=== PATIENT | male | born 1975 | race Caucasian/White ===

== ENCOUNTER 2022-02-26 11:09 | Outpatient (REF) | payer OTHER, SELFPAY ==
[2022-02-26 13:32] LABS: MANUAL DIFF FLAG NO
[2022-02-26 13:43] LABS: Basophils Absolute Auto 0.1 X10*3/uL (0.0-0.2); Basophils Percent Auto 0.6 % (0-2); Eosinophils Absolute Auto 0.1 X10*3/uL (0.0-0.4); Eosinophils Percent Auto 1.1 % (0-4); Hematocrit 42.7 % (42.0-52.0); Hemoglobin 14.3 g/dl (14.0-18.0); Imm Gran Abs Auto 0.07 X10*3/uL (0.00-0.03); Imm Gran Pct Auto 0.9 % (0.0-0.4); Lymphocytes Absolute Auto 1.4 X10*3/uL (1.2-4.9); Lymphocytes Percent Auto 17.3 % (20-40); Mean Corpuscular HGB Conc 33.5 g/dl (31.0-36.0); Mean Corpuscular Hemoglobin 29.1 pg (27.0-33.0); Mean Corpuscular Volume 86.8 fL (80.0-98.0); Mean Platelet Volume 10.9 fL (9.4-12.4); Monocytes Absolute Auto 0.8 X10*3/uL (0.1-1.2); Monocytes Percent Auto 10.3 % (2-11); Neutrophils Absolute Auto 5.7 x10*3/uL (2.0-8.3); Neutrophils Percent Auto 69.8 % (45-73); Platelet Count 282 X10*3/uL (160-400); Red Blood Count 4.92 X10*6/uL (4.60-5.80); Red Cell Distribution Width 12.6 % (11.0-16.0); White Blood Count 8.2 X10*3/uL (4.8-10.8)
[2022-02-26 14:03] LABS: C Reactive Protein 8.75 mg/dL (< or = 0.50); Lactate Dehydrogenase 214 U/L (118-273)
== END 2022-02-26 11:10 | disposition home or self-care (01) ==
LOC: HO.10HDL 11:09
PROVIDERS: Visit Provider Internal Medicine
DX: R05.9 Cough, unspecified (principal)
CPT/HCPCS: 36415; 82550; 83615; 85025; 86140

== ENCOUNTER 2022-03-20 15:33 | Outpatient (REF) | payer OTHER, SELFPAY ==
--- NOTE | ~2022-03-20 | CT_ITS ---
EXAMINATION: CT CHEST WITH CONTRAST CLINICAL INFORMATION: Enlarged left hilar lymph node. COMPARISON: None TECHNIQUE: Multidetector volumetric CT imaging of the chest was obtained after the administration of 65 mL of Omnipaque 350 intravenous contrast without immediate adverse reactions. Axial MIP volume rendering provided. Sagittal and coronal reformatted images were obtained. This CT examination was performed using dose optimization techniques as appropriate, variously including the following: *Automated exposure control *Adjustment of mA and/or kV according to patient size (this includes techniques or standardized protocols for targeted exams where dose is matched to indication/reason for exam; i.e. 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 LUNGS: The lungs are well-expanded with ill-defined parenchymal opacity, left upper lobe, with a pleural-based lesion measuring 1.4 x 0.8 x 1.7 cm on axial image 134/5 and sagittal image 16/7. There are atelectatic changes in the left upper lobe as well. There are perivascular pulmonary nodules in the right upper lobe measuring 4 mm on axial image 170/5 and axial image 141/5; 6 mm nodule right upper lobe axial image 32/4; and a 3 mm nodule right middle lobe axial image 320/5. No additional lung nodules seen. MEDIASTINUM: The thyroid lobes are symmetrical and normal. The central trachea and the bronchi are widely patent. There are numerous abnormal size para-aortic pretracheal, precarinal and subcarinal lymph nodes. A large left suprahilar necrotic lymph node is suspected measuring 2.9 x 1.7 cm on axial image 24/3. Also visualized is a left parahilar hypodense lymph node measuring 2.7 cm on axial image 29/3. It measures 65 Hounsfield units. PLEURA: There is no pleural effusion. No pleural mass or thickening. AXILLA: There are multiple small axillary nodules. The chest wall is unremarkable. UPPER ABDOMEN: Visualized liver, spleen and pancreas appear unremarkable. The adrenal glands are normal. OSSEOUS STRUCTURES: No aggressive lytic or sclerotic process seen. CT/CT chest w IV con IMPRESSION: 1. Multiple pulmonary nodules as described above. 2. There is a left upper lobe pleural-based lesion with associated left upper lobe ill-defined ground-glass opacity. Question atelectasis and/or interstitial pneumonitis. 3. There is abnormal mediastinal and left hilar lymphadenopathy. 4. There are multiple small axillary nodules. 5. Suggest PET/CT exam. Fleischner guidelines were followed.
[2022-03-20] MEDS: iohexoL 350 MG/ML 100 ML INFUS..BTL IV (15:52)
== END 2022-03-20 15:34 | disposition home or self-care (01) ==
LOC: HO.CT 15:33
PROVIDERS: PCP Internal Medicine; Visit Provider Internal Medicine
DX: R59.0 Localized enlarged lymph nodes (principal)
CPT/HCPCS: 71260; Q9967

== ENCOUNTER 2022-04-06 09:56 | Outpatient (REF) | payer OTHER, SELFPAY ==
[2022-04-06 10:34] LABS: MANUAL DIFF FLAG NO
[2022-04-06 10:45] LABS: Basophils Percent Auto 0.6 % (0-2); Eosinophils Absolute Auto 0.1 X10*3/uL (0.0-0.4); Eosinophils Percent Auto 1.5 % (0-4); Hematocrit 47.1 % (42.0-52.0); Hemoglobin 15.8 g/dl (14.0-18.0); Imm Gran Abs Auto 0.02 X10*3/uL (0.00-0.03); Imm Gran Pct Auto 0.3 % (0.0-0.4); Lymphocytes Absolute Auto 1.3 X10*3/uL (1.2-4.9); Mean Corpuscular HGB Conc 33.5 g/dl (31.0-36.0); Mean Corpuscular Hemoglobin 28.2 pg (27.0-33.0); Mean Corpuscular Volume 84.1 fL (80.0-98.0); Mean Platelet Volume 11.2 fL (9.4-12.4); Monocytes Absolute Auto 0.6 X10*3/uL (0.1-1.2); Monocytes Percent Auto 9.2 % (2-11); Neutrophils Absolute Auto 4.4 x10*3/uL (2.0-8.3); Neutrophils Percent Auto 68.4 % (45-73); Platelet Count 237 X10*3/uL (160-400); Red Cell Distribution Width 13.1 % (11.0-16.0); White Blood Count 6.5 X10*3/uL (4.8-10.8)
[2022-04-06 11:13] LABS: Lactate Dehydrogenase 174 U/L (118-273)
[2022-04-06 11:31] LABS: Erythrocyte Sedimentation Rate 6 MM/HR (0-15)
[2022-04-09 10:30] LABS: TS Negative Control Passed; TS Panel A 0; TS Panel B 0; TS Positive Control Passed; TSpotTB Negative (Negative)
== END 2022-04-06 09:57 | disposition home or self-care (01) ==
LOC: HO.10HDL 09:56
PROVIDERS: Visit Provider Internal Medicine Medical Oncology
DX: J18.9 Pneumonia, unspecified organism (principal)
CPT/HCPCS: 36415; 83615; 85025; 85652; 86481

== ENCOUNTER → 2022-04-26 10:35 | Outpatient (BNVA) | payer OTHER, SELFPAY | PROVIDERS: PCP Internal Medicine; Visit Provider Hospitalist | DX: Z13.89 Encounter for screening for other disorder (principal) ==

== ENCOUNTER 2022-05-01 06:32 | Day surgery (SDC) | payer OTHER, SELFPAY ==
--- NOTE | 2022-04-30 12:41 | HO.ANESPROP2 ---
Documented by User: Korin Mark NP 04/30/22 12:43 HPI - Anesthesia Eval Consult details Narrative: 47yo M for Endoscopic Bronchial Ultrasound PMFSH Active Problems Active Problems: All Active Problems (Updated 04/26/22 @ 20:52 by Nikhil Marin MD) Wheezing (Acute) Lymphadenopathy (Acute) Lung mass (Acute) Pneumonia (Acute) Past Medical History Medical History Anxiety HTN (hypertension) Lung mass Lymphadenopathy Pneumonia Wheezing Surgical History Surgical History Hx of tonsillectomy Social History Social History Patient Tobacco Use Status: Former Tobacco user Quit Date: 8 yrs ago Use of substances other than those prescribed or required for medical reasons: No Are you DNR?: No Advance Directives: No Advance Directives Information Provided: Yes Meds Allergies Allergy/AdvReac Type Severity Reaction Status Date / Time No Known Allergies Allergy Verified 05/01/22 07:05 Home Medications Medication Instructions Recorded Confirmed Last Taken Type escitalopram oxalate 20 mg tablet 20 mg PO DAILY 04/26/22 05/01/22 Unknown History (Lexapro) lisinopril 20 mg tablet 20 mg PO DAILY 04/26/22 05/01/22 Unknown History multivitamin 1 tab PO DAILY 04/26/22 05/01/22 Unknown History Exam Exam Date and Time: April 30, 2022 1241 Pertinent Lab Results Pertinent Lab Results: Laboratory Tests 04/06/22 10:00 WBC 6.5 Hgb 15.8 Hct 47.1 Plt Count 237 Assessment and Plan Assessment Anesthesia Assessment: Chart Reviewed Documented by User: Makayla Hopkins MD 05/01/22 07:40 PMFSH Active Problems Active Problems: All Active Problems (Updated 04/26/22 @ 20:52 by Nikhil Marin MD) Wheezing (Acute) Lymphadenopathy (Acute) Lung mass (Acute) Pneumonia (Acute) Denies STEVAN Past Medical History Medical History Anxiety HTN (hypertension) Lung mass Lymphadenopathy Pneumonia Wheezing Family History Family history of problems with anesthesia: No Surgical History Surgical History Hx of tonsillectomy History of Problems with Anesthesia: No Social History Social History Patient Tobacco Use Status: Former Tobacco user Quit Date: 8 yrs ago Use of substances other than those prescribed or required for medical reasons: No Are you DNR?: No Advance Directives: No Advance Directives Information Provided: Yes Meds Allergies Allergy/AdvReac Type Severity Reaction Status Date / Time No Known Allergies Allergy Verified 05/01/22 07:05 Home Medications Medication Instructions Recorded Confirmed Last Taken Type escitalopram oxalate 20 mg tablet 20 mg PO DAILY 04/26/22 05/01/22 Unknown History (Lexapro) lisinopril 20 mg tablet 20 mg PO DAILY 04/26/22 05/01/22 Unknown History multivitamin 1 tab PO DAILY 04/26/22 05/01/22 Unknown History Exam Height,Weight and Vital Signs: Height 5 ft 8.9 in Weight 85.729 kg Vital Signs Temp Pulse Resp BP Pulse Ox O2 Del Method 05/01/22 07:06 98.4 F 64 15 127/81 97 Room Air Airway Mallampati Class: III TM Dist: >3cm Neck ROM: Full Loose/Missing/Broken Teeth: No (Denies broken, loose, missing teeth) Heart: RRR Lungs: CTAB Assessment and Plan Assessment Anesthesia Assessment: Anesthesia Plan Discussed Final Anesthetic Review Family History of Problems with Anesthesia: No History of Problems with Anesthesia: No NPO: Yes ASA Class: II Final Preanesthetic Review: No Changes in Pt Med Stat, Meds/Allgs Chart Reviewed, Consent Obtained/Reviewed and Anes Risks/Benef Reviewed Patient Risk: Intermediate Procedure Risk: Low Assessment/Block/Sedation in SS: Assess/Block/Sedation-SS Anesthetic Plan Anesthetic Plan: GA Disposition: Standard PACU
[2022-05-01] VITALS (8 sets, daily range): BP systolic 80–127; BP diastolic 51–81; PULSE 55–75; RESP 15–20; TEMP 36.4–36.9; O2SAT 95–99; BMI 28.0
--- NOTE | ~2022-05-01 | XR_ITS ---
EXAMINATION: XR CHEST CLINICAL INFORMATION: Status post left lung biopsy. COMPARISON: Chest CT scan dated 03/20/2022 TECHNIQUE: Frontal view of the chest was obtained. FINDINGS: Increased consolidation is seen in the left upper lobe medially in the suprahilar region. The lungs otherwise appear clear. The heart and mediastinal structures are unremarkable. XR/XR chest 1V IMPRESSION: Increased consolidation in the left upper lobe medially in the suprahilar region represents interval increase in the previous study. This could represent enlarging mass/infiltrate and/or atelectasis. If clinically indicated, a repeat chest CT scan with intravenous contrast is recommended to assess for change from the previous study.
[2022-05-01] MEDS: Lactated Ringers 1,000 ML 100 ML IVCONT (07:07)
--- NOTE | 2022-05-01 07:53 | MHC.SHP ---
Pre-Procedural Eval Section A Date of Service: 05/01/22 The patient is an INPATIENT: No Changes since office visit: No Cold of Flu in the past 2 weeks, No New Medical Problems, No Changes in Medication and No Patient answered all questions The History & Physical has been completed within 30 days and I have reviewed it.: Yes Section B Chief Complaint: Enlarged lymph nodes, unspecified,Other nonspecifi Allergies: Allergies Allergy/AdvReac Type Severity Reaction Status Date / Time No Known Allergies Allergy Verified 05/01/22 07:05 Plan I have reviewed the history and physical and performed a pertinent physical examination on my patient. No changes have occurred unless specified. Time Spent With Patient Time: Total time managing care of this patient today ____ minutes.
--- NOTE | 2022-05-01 09:54 | P.BOP_ITS ---
Brief Operative Note Date of Service: 05/01/22 Pre-op diagnosis: lymphadenopathy, pneumonia Post-op diagnosis: other (Lymphadenopathy, endobronchial lesion, pericardial effusion) Procedure: EBUS with TBNA and bronchoscopy wmith washings, brushings, and biopsies Implants: Surgeon: Nikhil Marin MD Anesthesia: GETA Was an Test Director used for this Procedure?: No Estimated blood loss (mL): 1 Pathology: other (LAMONTE biopsies, station 4R, 7, 11L TBNA, flow cytometry) Condition: stable Disposition: same day
--- NOTE | 2022-05-02 12:53 | OP_ITS ---
SURGEON: Nikhil Marin MD PREOPERATIVE DIAGNOSIS: Lymphadenopathy, pneumonia, and mass like density. POSTOPERATIVE DIAGNOSIS: Lymphadenopathy, pneumonia, and mass like density as well as endobronchial irregularities to the left upper lobe and pericardial effusion. PROCEDURE PERFORMED: Endobronchial ultrasound, bronchoscopy with transbronchial needle aspiration of station 4R, 7, and 11L along with bronchoscopy with washings, brushings, and endobronchial biopsies of the left upper lobe area. ESTIMATED BLOOD LOSS: 1 mL. COMPLICATIONS: None. ANESTHESIA: General endotracheal anesthesia provided. ASSISTANTS: SPECIMENS: Transbronchial needle aspirations from station 4R, 7, and 11L and also left upper lobe biopsies about the anterior in the apical segment. DESCRIPTION OF PROCEDURE: After the patient was adequately sedated and intubated, the flexible digital bronchoscope with endobronchial ultrasound (EBUS) was inserted over the ET tube to the level of the trachea. Using the ultrasound guidance, appreciate significant degree of lymphadenopathy in the mediastinum and also the hilum. The 4R lymph node measured approximately 1.5 cm. The patient's 7 lymph node was measuring along 2 cm to 3 cm in size, and the 11L lymph nodes measured approximately 1 cm to 1.5 cm in size. Using the ultrasound guidance, a transbronchial needle aspirations were attempted at station 4R initially. Three passes were done. Initially, scant lymphocytes. The lymph node was very hard and likely very infiltrative, sometimes making it difficult to get a good aspirate. Again, multiple attempts were done and solution was also sent for flow cytometry based on the character of those lymph nodes. The bronchoscope was navigated to the station 7 where 4 passes were done. Again, difficult to acquire specimen since it was very hard lymph node, suggesting some pathology within it. Specimens were collected. Lymphocytes were noted. Some microphages were also noted, although no malignant cells appreciated on the rapid on-site cytology. Apparently, at station 11L, three passes were completed. Again, some scant specimens were provided. Most of the specimen sent cell block and the last pass we sent for culture. After completing the EBUS component, the EBUS was removed and replaced with the regular bronchoscope. The bronchoscope was navigated to the entire tracheobronchial tree, which was examined up to the subsegmental level. The airways on the right appeared to be reassuring and normal. The patient did have a splayed cesar. Started having significant erythema and narrowing of the airways in that left upper lobe area including the apical, anteromedial segments. Significant erythema and narrowing. One area appeared to be of cesar in between those 2 segments, like a mass like density, although since it was slightly irregular, the whole area was hard to know if there was one distinct lesion or if it was just all inflamed from an ongoing smoldering process. Still, cytologic brushes introduced into that area, sent to the appropriate location. Then endobronchial biopsies were collected and some transbronchial biopsies were collected from the left upper lobe area. The patient was oozing, minimal bleeding. Epinephrine was used at the end of the procedure, half an ampule just to provide good hemostasis. No active bleeding at the end of the procedure. The bronchoscope was then removed. The total endoscopic time approximately an hour. The patient tolerated the procedure. He was successfully extubated and was comfortable. WATER HAULER: None. CONDITION: Stable. No apparent complications noted. Also worth mentioning that during the ultrasound evaluation of the mediastinum, especially at station 7, the patient did appear to have a pericardial effusion, and therefore, he would need an echocardiogram at some point. MD PAM Treadwell/ELIN / [id number]
== END 2022-05-01 10:54 | disposition home or self-care (01) ==
PROVIDERS: PCP Internal Medicine; Visit Provider Hospitalist
PROC: (CPT 31628; principal; 2022-05-01 08:00)
DX: R59.1 Generalized enlarged lymph nodes (principal); J18.9 Pneumonia, unspecified organism; J98.09 Other diseases of bronchus, not elsewhere classified; I31.39 Other pericardial effusion (noninflammatory); R06.2 Wheezing; R91.8 Other nonspecific abnormal finding of lung field; I10 Essential (primary) hypertension; F41.1 Generalized anxiety disorder; Z79.899 Other long term (current) drug therapy; Z87.891 Personal history of nicotine dependence
CPT/HCPCS: 31628; 31653; 31623; 36415; 71045; 87070; 87073; 87102; 87116; 87205; 87206; 88112; 88172; 88173; 88177; 88184; 88185; 88305; 88312; J2250; J3010

== ENCOUNTER 2022-05-07 09:15 | Outpatient (REF) | payer OTHER, SELFPAY ==
--- NOTE | 2022-05-07 10:06 | ECG_ITS ---
Test Reason : copd Blood Pressure : / mmHG Vent. Rate : 050 BPM Atrial Rate : 050 BPM P-R Int : 192 ms QRS Dur : 116 ms QT Int : 426 ms P-R-T Axes : 042 049 057 degrees QTc Int : 388 ms Sinus bradycardia Otherwise normal ECG No previous ECGs available Referred By: Nikhil Marin Electronically Signed By:FRANCES OROZCO
[2022-05-07 10:23] LABS: MANUAL DIFF FLAG NO
[2022-05-07 10:55] LABS: Basophils Percent Auto 0.3 % (0-2); Eosinophils Absolute Auto 0.1 X10*3/uL (0.0-0.4); Eosinophils Percent Auto 0.7 % (0-4); Hematocrit 48.6 % (42.0-52.0); Hemoglobin 16.3 g/dl (14.0-18.0); Imm Gran Abs Auto 0.04 X10*3/uL (0.00-0.03); Imm Gran Pct Auto 0.5 % (0.0-0.4); Lymphocytes Percent Auto 13.2 % (20-40); Mean Corpuscular HGB Conc 33.5 g/dl (31.0-36.0); Mean Corpuscular Hemoglobin 28.5 pg (27.0-33.0); Mean Platelet Volume 11.3 fL (9.4-12.4); Monocytes Absolute Auto 0.5 X10*3/uL (0.1-1.2); Monocytes Percent Auto 6.8 % (2-11); Neutrophils Absolute Auto 5.9 x10*3/uL (2.0-8.3); Neutrophils Percent Auto 78.5 % (45-73); Platelet Count 212 X10*3/uL (160-400); Red Blood Count 5.72 X10*6/uL (4.60-5.80); Red Cell Distribution Width 13.3 % (11.0-16.0); White Blood Count 7.6 X10*3/uL (4.8-10.8)
[2022-05-07 11:39] LABS: Erythrocyte Sedimentation Rate 2 MM/HR (0-15)
[2022-05-07 11:46] LABS: Alanine Aminotransferase 21 U/L (0-40); Albumin Level 4.4 g/dL (3.5-5.0); Alkaline Phosphatase 72 U/L (39-117); Anion Gap 13 (12-20); Aspartate Amino Transferase 16 U/L (5-37); Bilirubin Direct 0.2 mg/dL (0.0-0.5); Bilirubin Total 0.5 mg/dL (0.0-1.0); Blood Urea Nitrogen 10 mg/dL (9-16); Calcium 9.5 mg/dL (8.4-10.2); Carbon Dioxide 27 mmol/L (22-29); Chloride 102 mmol/L (96-108); Estimated Glomerular Filt Rate > 60; Glucose Random 73 mg/dL (60-115); Potassium 4.3 mmol/L (3.3-5.1); Sodium 138 mmol/L (135-145); Total Protein 7.1 g/dL (6.5-8.0)
[2022-05-07 11:51] LABS: Troponin-I High Sensitivity < 3.5 ng/L (<3.5-35.0)
[2022-05-09 13:48] LABS: Immunoglobulin E 229 kU/L (<OR=114)
[2022-05-09 14:14] LABS: IgA 216 mg/dL (47-310); IgG 1368 mg/dL (600-1640); IgM 39 mg/dL (50-300)
[2022-05-09 15:08] LABS: Anti Nuclear Antibody Screen NEGATIVE (NEGATIVE)
[2022-05-10 14:24] LABS: Angiotensin Converting Enzyme 9.4 U/L (9-67)
[2022-05-12 13:58] LABS: Asperg fumigatus Precip Abs NEGATIVE (NEGATIVE); Micropoly faeni Abs NEGATIVE (NEGATIVE); Pigeon serum Abs NEGATIVE (NEGATIVE); Saccharo pora viridis Abs NEGATIVE (NEGATIVE); Thermo candidus Abs NEGATIVE (NEGATIVE); Thermoa vulgaris #1 NEGATIVE (NEGATIVE)
== END 2022-05-07 09:16 | disposition home or self-care (01) ==
LOC: HO.LAB 09:15
PROVIDERS: PCP Internal Medicine; Visit Provider Hospitalist
DX: J44.9 Chronic obstructive pulmonary disease, unspecified (principal); R59.1 Generalized enlarged lymph nodes; J18.9 Pneumonia, unspecified organism; R91.8 Other nonspecific abnormal finding of lung field; D86.9 Sarcoidosis, unspecified; I31.39 Other pericardial effusion (noninflammatory)
CPT/HCPCS: 36415; 80048; 80076; 82164; 82784; 82785; 84484; 85025; 85652; 86038; 86039; 86331; 86606; 86609; 93005

== ENCOUNTER 2022-05-15 13:59 | Outpatient (REF) | payer OTHER, SELFPAY ==
--- NOTE | 2022-05-15 17:32 | PFT_ITS ---
FLOWS: 1. FEV1 93% of predicted at 3.57 L. 2. FVC 91% of predicted at 4.52 L. 3. FEV1 to FVC ratio of 0.79. 4. No bronchodilator response. LUNG VOLUMES: 1. Total lung capacity 85% of predicted at 5.79 L. 2. Residual volume 65% of predicted at 1.27 L. 3. Slow vital capacity 93% of predicted at 4.52 L. 4. Expiratory reserve volume 83% of predicted at 1.22 L. 5. Diffusion capacity is normal. IMPRESSION: Mild obstructive or restrictive ventilatory defect. No bronchodilator response. Essentially normal pulmonary function test. MD JEYSON Campbell/MODL / [id number]
== END 2022-05-15 14:00 | disposition home or self-care (01) ==
LOC: HO.RESP 13:59
PROVIDERS: PCP Internal Medicine; Visit Provider Hospitalist
DX: D86.9 Sarcoidosis, unspecified (principal)
CPT/HCPCS: 94060; 94727; 94729

== ENCOUNTER → 2022-06-26 10:02 | Outpatient (REF) | payer OTHER, SELFPAY ==
--- NOTE | 2022-06-26 10:08 | CA_ITS ---
Transthoracic Echocardiogram Patient (Last, First, Middle): Serena Porter, Gender: Male Date of : 1975 Age: 47 Procedure Date: 06/26/2022 Procedure Type: Transthoracic Echocardiogram Location: OP Height: 175.26 cm Weight: 88. kg BSA: 2.04 m2 Heart Rate: 52 bpm BP: 125 / 80 mmHg Materials Supervisor: DANIEL Referring MD: Nikhil Marin MD Symptoms: I27.20 - Pulmonary hypertension, unspecified Study Quality: Good ECG Rhythm: Sinus Conclusions: - The left ventricular systolic function is normal. The visually estimated ejection fraction is between 55-60%. - No obvious valvular pathology seen on this study. - There is no evidence of pulmonary hypertension. - There is mild dilatation of the ascending aorta measuring 3.80 cm. Findings Left Ventricle Normal left ventricular cavity size. There is normal left ventricular wall thickness. The left ventricular systolic function is normal. The visually estimated ejection fraction is between 55-60%. There is no evidence of regional wall motion abnormalities. Diastolic function is normal for age. LV peak GLS -18.5%. Right Ventricle Normal right ventricular cavity size and systolic function. Atria Both atria are normal in size. Aortic Valve There is a normal trileaflet aortic valve. There is no aortic valve stenosis. There is no aortic valve regurgitation. Mitral Valve The mitral valve appears normal. There is trace mitral valve regurgitation. There is no mitral valve stenosis. Pulmonic Valve The pulmonic valve is likely normal. Tricuspid Valve Normal tricuspid valve structure. There is trace tricuspid valve regurgitation. There is no evidence of pulmonary hypertension. Great Vessels There is mild dilatation of the ascending aorta measuring 3.80 cm. Venous The inferior vena cava is normal in size and collapses greater than 50% with inspiration. Pericardium/Pleural Prominent epicardial adipose tissue noted. There is no evidence of pericardial effusion. Prior Study Comparison No prior study available for comparison. Recommendations, Care & Conclusions No obvious valvular pathology seen on this study. Measurements 2D Linear Measurements IVSd: 0.98 0.6-0.9/0.6-1.0 cm LVIDd: 4.81 3.9-5.3/4.2-5.9 cm LVIDd Index: 2.36 2.4-3.2/2.2-3.1 cm/m2 LVIDs: 3.05 2.0-3.6 cm LVPWd: 0.91 0.7-1.1 cm LA Diam: 3.80 2.7-3.8/3.0-4.0 cm LAIDs Index: 1.86 1.5-2.3 cm/m2 LV Mass: 197.76 67-162/88-224 g LV Mass Index: 96.94 43-95/49-115 g/m2 LVOT Diam: 2.10 3.0+(-)1.3 cm 2D Systolic Function EF 4C: 57.20 >55% EF 2C: 52.30 >55% EF BiP: 53.00 >55% Mitral Valve MV Pk E: 0.97 MV PK A: 0.78 MV Decel Time: 188.00 E/A: 1.20 E'Lateral: 11.50 E'Medial: 7.83 E/E' Med: 12.40 E/E' Lat: 8.40 PHT: 55.00 MVA PHT: 4.00 Decel [place]: 5.14 Aortic Valve AoV Pk [place]: 1.47 AoV Mn [place]: 1.00 AoV VTI: 0.35 AoV Pk Grad: 9.00 Aov Mn Grad: 5.00 RICKY Cont.VTI: 2.15 LVOT LVOT Pk [place]: 0.99 LVOT Mn [place]: 0.63 LVOT VTI: 0.22 LVOT Pk Grad: 4.00 LVOT Mn Grad: 2.00 LVOT Diam: 2.10 LVOT Area: 3.46 Diastolic Function MV Pk E: 0.97 MV Pk A: 0.78 E/A: 1.20 E'Medial: 7.83 E/E' Med: 12.40 E' Laterial: 11.50 E/E' Lat: 8.40 Right Ventricle TAPSE (mm): 22.60 TVS' [place]: 13.30 Tricuspid Valve RA Press: 3.00 Great Vessels Aorta Sinus of Valsalva: 3.70 2.0-3.5 cm Ao Asc: 3.80 2.1-3.4 cm Pulmonary Valve PV Pk [place]: 1.05 Peak PV Grad: 4.00 Updated in Other Vendor System with Status of Final Solis Calderon MD electronically signed on 06/26/2022 3:46:07 PM with status of Final
== END ==
LOC: HO.CARD 10:02
PROVIDERS: PCP Internal Medicine; Visit Provider Hospitalist
DX: I27.20 Pulmonary hypertension, unspecified (principal); I31.39 Other pericardial effusion (noninflammatory); D86.9 Sarcoidosis, unspecified
CPT/HCPCS: 93306; 93356

== ENCOUNTER → 2022-07-03 08:51 | Outpatient (BNVA) | payer OTHER, SELFPAY | PROVIDERS: PCP Internal Medicine; Visit Provider Hospitalist | DX: D86.9 Sarcoidosis, unspecified (principal) ==

== ENCOUNTER 2022-09-24 08:27 | Outpatient (REF) | payer OTHER, SELFPAY ==
--- NOTE | ~2022-09-24 | CT_ITS ---
EXAMINATION: CT CHEST WITHOUT CONTRAST CLINICAL INFORMATION: Other nonspecific abnormal finding of lung field COMPARISON: Previous chest CTA January [address] March 2022 and chest x-ray April 2022 TECHNIQUE: Multidetector volumetric CT imaging of the chest was done. Axial MIP volume rendering provided. Sagittal and coronal reformatted images were obtained. This CT examination was performed using dose optimization techniques as appropriate, variously including the following: *Automated exposure control *Adjustment of mA and/or kV according to patient size (this includes techniques or standardized protocols for targeted exams where dose is matched to indication/reason for exam; i.e. extremities or head) *Use of iterative reconstruction technique DLP: 190 mGy-cm FINDINGS: LUNGS: 3 mm right upper lobe nodule axial image 236 series 5. 2 mm right middle lobe nodule axial image 409 series 5. These are both stable from previous exam March 2022. There is mild residual scarring seen in the central left upper lobe. Previously identified central masslike consolidation, increased more peripheral attenuation, micronodules and interstitial markings on March 2022 exam have significantly improved. There is minimal residual peripheral or subpleural scarring in the left upper lobe versus pleural thickening axial image 194 series 5 that appears decreased. MEDIASTINUM: Significant interval decrease in mediastinal and hilar lymphadenopathy. No enlarged lymph nodes seen. Normal heart size. No pericardial effusion. Normal thyroid gland. CORONARY ARTERY CALCIFICATION: None visualized on this study. PLEURA: There is no pleural effusion. Question small area of focal pleural thickening adjacent to the left upper lobe versus peripheral or subpleural nodule axial image 20 series 3. AXILLA: No lymphadenopathy. UPPER ABDOMEN: Unremarkable. OSSEOUS STRUCTURES: Unremarkable. CT/CT chest wo IV con IMPRESSION: Significant improvement in left upper lobe process and mediastinal and hilar lymphadenopathy from March 2022. There is residual scarring seen in the central left upper lobe. Small residual peripheral or subpleural nodular density in the left upper lobe versus focal pleural thickening. Stable small right pulmonary nodules. Fleischner guidelines were followed.
== END 2022-09-24 08:28 | disposition home or self-care (01) ==
LOC: HO.CT 08:27
PROVIDERS: PCP Internal Medicine; Visit Provider Hospitalist
DX: R91.8 Other nonspecific abnormal finding of lung field (principal)
CPT/HCPCS: 71250

== ENCOUNTER 2022-10-09 08:57 | Outpatient (AMB) | payer OTHER, SELFPAY ==
[2022-10-09 09:03] VITALS: BP 110/70; PULSE 58; O2SAT 97; BMI 29.5
--- NOTE | 2022-10-09 09:03 | A.OFFVIS_ITS ---
Intake Vital Signs 10/09/22 09:03 Height 5 ft 9 in Weight 200 lb BMI 29.5 BP 110/70 Blood Pressure Location Lt brachial Position Sitting Pulse 58 Pulse Source Pulse Oximeter Pulse Oximetry (%) 97 Oxygen Delivery Method Room Air Intake Visit Reasons: Pulmonary nodule Land [employer] Information Clerk Required: No Allergies No Known Allergies Allergy (Verified 10/09/22 09:05) HPI HPI Comments History of Present Illness Details The patient is a 47-year-old gentleman previously healthy who apparently was in his usual state health until back in January when he was in [place] started developing left-sided chest discomfort along with shortness of breath and cough. He was taken to a hospital in the [place] area. He did have a CT scan of the chest at that time the diagnosis in with pneumonia. The patient was given antibiotics and subsequently came back to the area. Once he came back to the [place] he needed to be started to the primary care doctor. Therefore, the patient did have a visit with primary care doctor. He initially felt better after being treated for the findings on the CT scan with antibiotics however, once he completed the therapy symptoms started to come back. He went to see his primary care doctor the patient completed the course of antibiotics with again partial improvement of the symptoms. At least his chest discomfort is no longer present although he still has coughing feeling aware sensation will need sleeps on with his left side down. More recently he received additional antibiotics for a IVF therapy. The patient did have additional blood work including a TB test that was negative. The patient denies any underlying respiratory issues or pneumonias in the past. He did have a repeat CT scan in mid March which I personally reviewed with them. I could not compare to his previous CT scan from [place] although he does have the CD new bring it in so we can download it. It appears that he has a masslike consolidation in the left upper lobe and significant hilar and mediastinal lymphadenopathy. I explained to the that this may be a smoldering infection or it may be that he has a concomitant process. Malignancy is in the differential. In addition to this the patient still has asymmetrical wheezing that area so therefore the area still involved even though the CT scan was from March. Will plan for urgent bronchoscopy at this time to better assess and evaluate the area. We did talk about different options including performing endobronchial ultrasound to sample the lymph nodes as well as regular bronchoscopy to further evaluate the airways and biopsy that left upper lobe area. 05/07/2022 the patient is here for a pulmonary follow-up visit. He is status post bronchoscopy. He had significant inflammation of the left upper lobe airways with narrowing of the airways. The patient also has significant lymphadenopathy in the mediastinum and also in the hilum. Some of the hilar lymph nodes on the left appear to be somewhat necrotic. Ultimately had both granulomas within the lymph nodes and also within the endobronchial mucosa suggestive of sarcoidosis. The granulomas were non necrotizing. The patient had already a negative T spot and also his AFB and fungal cultures are also negative hep to now. The however, they have not been finalized. The patient points more towards sarcoidosis however. The flow cytometry was negative for lymphoma. The patient also noted to have a small pericardial effusion noted on the endobronchial ultrasound bronchoscopy although this has has not been confirmed. Therefore I will also request an echocardiogram. The patient has been on a small dose of prednisone and appears to be feeling better. Therefore at this point since he is already feeling better with small dose will continue the current dose of 10 mg daily. She will undergo blood work PFTs echocardiogram and EKG and then will follow-up. 07/03/2022 the patient is here for a pulmonary follow-up visit. Overall the patient has been doing well. He is tolerating the 10 mg of prednisone. His respiratory symptoms have subsided denies any chest pain or cough or shortness of breath. He does have discomfort on the right side of his neck. Likely suspicious for tenderness over the right submandibular salivary gland. His other the submandibular gland and parotid glands appear to be okay. Explained to him that sometimes sarcoid can affect the salivary glands. Will have to monitor closely. The meantime he can try some sour candy. The patient will stay on 10 mg of prednisone for now. Plan to have him come back in [address] scan of the chest. In the meantime he needs to go get his eyes checked to make sure that there isn't any evidence of uveitis. The patient did have an echocardiogram. It was normal except for slight dilation of the ascending aorta. He understands he has to be careful with blood pressure keeping good control. 10/09/2022 the patient is here for a pulmonary follow-up visit. Overall he is feeling well. Continues on 10 mg of prednisone. Will work now on decreasing the prednisone. The patient did have a recent CT scan of the chest that was personally by me. No evidence of any active disease. Significant resolution of the lymphadenopathy and also the lung densities. Still has some pulmonary nodules and some streaks surgical scarring but minimal. Will need a follow-up CT in 12 months if he continues to be stable. The meantime will taper down the prednisone and start him on inhaled cortical steroids. The patient is aware that if he starts developing worsening respiratory symptoms he is to call the office. Otherwise will follow-up in the springtime with PFTs. [facility] Medical History (Updated 07/03/22 @ 19:49 by Nikhil Marin MD) Anxiety HTN (hypertension) Lung mass Lymphadenopathy Pneumonia Sarcoidosis Wheezing Surgical History Hx of tonsillectomy Social History Patient Tobacco Use Status: Former Tobacco user Quit Date: 8 yrs ago Review of Systems Const Denies fever(s) Eyes Denies change in vision ENT Denies neck pain Card Denies chest pain and Denies dyspnea Resp Denies chest congestion, Denies cough, Denies dyspnea and Denies wheezing GI Reports no additional complaints Musc Reports no additional complaints and Denies neck pain Skin/Breast Denies rash Neuro Reports no additional complaints Jules/Lymph Denies easy bleeding, Denies easy bruising and Denies lymphadenopathy Aller/Immun Denies wheezing Physical Exam Vital Signs: Last Vital Signs Pulse 58 10/09/22 09:03 BP 110/70 10/09/22 09:03 Pulse Ox 97 10/09/22 09:03 Oxygen Delivery Method Room Air 10/09/22 09:03 BMI result Body Mass Index 29.5 Const General: healthy appearing and comfortable HEENT Head: Yes normocephalic Eyes General: appearance normal, both eyes and all related structures Neck Neck: Yes supple Chest Chest palpation & inspection: normal inspection of the chest Resp Effort & Inspection: normal respiratory effort Auscultation: clear to auscultation bilaterally and no wheezes Cardio Rate: regular rate Rhythm: regular rhythm Heart sounds: S1 normal heart sound present and S2 normal heart sound present GI Palpation (GI): Soft to palpation Skin General skin exam: no rashes or lesions noted Extrem General: Yes normal to inspection Assessment & Plan Assessment & Plan (1) Sarcoidosis: Code(s): D86.9 - Sarcoidosis, unspecified (2) Lymphadenopathy: Code(s): R59.1 - Generalized enlarged lymph nodes Plan Completed 6 months of prednisone, will taper off start Flovent HFA PFTs in 6 months F/U 6 months. Call if any symptoms reoccur once off the prednisone Orders: Orders PFT pulmonary function test 05/13/23 D86.9 - Sarcoidosis, unspecified Medications: New prednisone 5 mg PO DAILY 30 days 30 tabs 0RF fluticasone propionate 220 mcg/actuation (Flovent HFA) 2 puffs inhalation DAILY 30 days 12 grams 10RF Coding Level of Care Code Est Pt Level 4 (09955) Diagnoses Sarcoidosis D86.9 Lymphadenopathy R59.1 Time Spent (min) 18
== END 2022-10-09 09:25 | disposition home or self-care (01) ==
PROVIDERS: PCP Internal Medicine; Visit Provider Hospitalist
DX: D86.9 Sarcoidosis, unspecified (principal); R59.1 Generalized enlarged lymph nodes
CPT/HCPCS: 99214

== ENCOUNTER → 2022-10-09 08:57 | Outpatient (BNVA) | payer OTHER, SELFPAY | PROVIDERS: PCP Internal Medicine; Visit Provider Hospitalist | DX: D86.9 Sarcoidosis, unspecified (principal) ==

== ENCOUNTER 2022-12-11 12:45 | Outpatient (REF) | payer OTHER, SELFPAY ==
[2022-12-11 14:03] LABS: MANUAL DIFF FLAG NO
[2022-12-11 14:14] LABS: Basophils Percent Auto 0.5 % (0-2); Eosinophils Absolute Auto 0.1 X10*3/uL (0.0-0.4); Eosinophils Percent Auto 0.6 % (0-4); Hematocrit 48.2 % (42.0-52.0); Hemoglobin 16.3 g/dl (14.0-18.0); Imm Gran Abs Auto 0.03 X10*3/uL (0.00-0.03); Imm Gran Pct Auto 0.4 % (0.0-0.4); Lymphocytes Absolute Auto 1.6 X10*3/uL (1.2-4.9); Lymphocytes Percent Auto 18.9 % (20-40); Mean Corpuscular HGB Conc 33.8 g/dl (31.0-36.0); Mean Corpuscular Volume 88.8 fL (80.0-98.0); Mean Platelet Volume 11.9 fL (9.4-12.4); Monocytes Absolute Auto 0.7 X10*3/uL (0.1-1.2); Monocytes Percent Auto 8.1 % (2-11); Neutrophils Percent Auto 71.5 % (45-73); Platelet Count 177 X10*3/uL (160-400); Red Blood Count 5.43 X10*6/uL (4.60-5.80); Red Cell Distribution Width 12.6 % (11.0-16.0); White Blood Count 8.4 X10*3/uL (4.8-10.8)
[2022-12-11 14:27] LABS: Alanine Aminotransferase 23 U/L (0-40); Albumin Level 4.6 g/dL (3.5-5.0); Alkaline Phosphatase 53 U/L (39-117); Anion Gap 14 (12-20); Aspartate Amino Transferase 26 U/L (5-37); Bilirubin Total 0.7 mg/dL (0.0-1.0); Blood Urea Nitrogen 14 mg/dL (9-16); Calcium 10.1 mg/dL (8.4-10.2); Carbon Dioxide 27 mmol/L (22-29); Chloride 102 mmol/L (96-108); Estimated Glomerular Filt Rate > 60; Glucose Random 95 mg/dL (60-115); Potassium 4.1 mmol/L (3.3-5.1); Sodium 139 mmol/L (135-145); Total Protein 7.7 g/dL (6.5-8.0)
== END 2022-12-11 12:46 | disposition home or self-care (01) ==
LOC: HO.10HDL 12:45
PROVIDERS: Visit Provider Internal Medicine
DX: K62.5 Hemorrhage of anus and rectum (principal); I10 Essential (primary) hypertension; D86.9 Sarcoidosis, unspecified
CPT/HCPCS: 36415; 80053; 82550; 85025; 86140

== ENCOUNTER 2023-05-28 12:27 | Outpatient (REF) | payer OTHER, SELFPAY ==
[2023-05-28 12:37] LABS: MANUAL DIFF FLAG NO
[2023-05-28 12:52] LABS: Basophils Percent Auto 0.5 % (0-2); Eosinophils Percent Auto 0.4 % (0-4); Hematocrit 46.4 % (42.0-52.0); Imm Gran Abs Auto 0.04 X10*3/uL (0.00-0.03); Imm Gran Pct Auto 0.5 % (0.0-0.4); Lymphocytes Absolute Auto 1.4 X10*3/uL (1.2-4.9); Lymphocytes Percent Auto 17.7 % (20-40); Mean Corpuscular HGB Conc 34.5 g/dl (31.0-36.0); Mean Corpuscular Hemoglobin 29.5 pg (27.0-33.0); Mean Corpuscular Volume 85.6 fL (80.0-98.0); Mean Platelet Volume 11.6 fL (9.4-12.4); Monocytes Absolute Auto 0.5 X10*3/uL (0.1-1.2); Monocytes Percent Auto 6.1 % (2-11); Neutrophils Absolute Auto 5.8 x10*3/uL (2.0-8.3); Neutrophils Percent Auto 74.8 % (45-73); Platelet Count 184 X10*3/uL (160-400); Red Blood Count 5.42 X10*6/uL (4.60-5.80); White Blood Count 7.7 X10*3/uL (4.8-10.8)
[2023-05-28 16:30] LABS: Alanine Aminotransferase 25 U/L (0-40); Albumin Level 4.7 g/dL (3.5-5.0); Alkaline Phosphatase 50 U/L (39-117); Anion Gap 13 (12-20); Aspartate Amino Transferase 26 U/L (5-37); Bilirubin Total 0.6 mg/dL (0.0-1.0); Blood Urea Nitrogen 10 mg/dL (9-16); Calcium 10.1 mg/dL (8.4-10.2); Carbon Dioxide 27 mmol/L (22-29); Chloride 102 mmol/L (96-108); Estimated Glomerular Filt Rate > 60; Glucose Random 98 mg/dL (60-115); Potassium 4.3 mmol/L (3.3-5.1); Sodium 138 mmol/L (135-145); Total Protein 7.5 g/dL (6.5-8.0)
== END 2023-05-28 12:28 | disposition home or self-care (01) ==
LOC: HO.LAB 12:27
PROVIDERS: PCP Internal Medicine; Visit Provider Internal Medicine
DX: K62.9 Disease of anus and rectum, unspecified (principal)
CPT/HCPCS: 36415; 80053; 82378; 85025

== ENCOUNTER 2023-06-07 11:00 | Outpatient (REF) | payer OTHER, SELFPAY ==
[2023-06-07 08:54] VITALS: PULSE 60; RESP 16; O2SAT 100
--- NOTE | 2023-06-07 13:50 | PFT_ITS ---
Indication: Sarcoidosis Spirometry [FEV1 to FVC 84%; FEV1 4.04 L; FVC 4.8 L. No significant response to bronchodilators noted. Maximum voluntary ventilation 92% predicted ] Lung Volumes [Total lung capacity 98% predicted; residual volume 117% predicted] Diffusion Capacity [DLCO 94% predicted] Comparisons [None] Interpretation [No obstructive nor restrictive ventilatory defects identified. No significant response to bronchodilators noted. Normal maximum voluntary ventilation. Lung volumes are within normal limits. Diffusing capacity also within normal limits. Consistent with normal lung mechanics.] MTDD
== END 2023-06-07 11:01 | disposition home or self-care (01) ==
LOC: HO.RESP 11:00
PROVIDERS: PCP Internal Medicine; Visit Provider Hospitalist
DX: D86.9 Sarcoidosis, unspecified (principal)
CPT/HCPCS: 94010; 94640; 94727; 94729

== ENCOUNTER → 2023-06-07 13:50 | Outpatient (BNV) | payer OTHER, SELFPAY | PROVIDERS: PCP Internal Medicine; Visit Provider Hospitalist | DX: D86.9 Sarcoidosis, unspecified (principal) | CPT/HCPCS: 94060; 94727; 94729 ==

== ENCOUNTER 2023-06-12 08:57 | Outpatient (AMB) | payer OTHER, SELFPAY ==
--- NOTE | 2023-06-12 09:03 | MHC.OFFVIS ---
Vital Signs 06/12/23 09:04 Height 5 ft 9 in Weight 203 lb BMI 30.0 Pulse 54 Pulse Source Pulse Oximeter Pulse Oximetry (%) 98 Oxygen Delivery Method Room Air Intake Visit Reasons: Pulmonary nodule Clinical Technician Required: No Allergies No Known Allergies Allergy (Verified 06/12/23 09:05) HPI Comments Details: The patient is a 48-year-old gentleman previously healthy who apparently was in his usual state health until back in January when he was in [place] started developing left-sided chest discomfort along with shortness of breath and cough. He was taken to a hospital in the [place] area. He did have a CT scan of the chest at that time the diagnosis in with pneumonia. The patient was given antibiotics and subsequently came back to the area. Once he came back to the [place] he needed to be started to the primary care doctor. Therefore, the patient did have a visit with primary care doctor. He initially felt better after being treated for the findings on the CT scan with antibiotics however, once he completed the therapy symptoms started to come back. He went to see his primary care doctor the patient completed the course of antibiotics with again partial improvement of the symptoms. At least his chest discomfort is no longer present although he still has coughing feeling aware sensation will need sleeps on with his left side down. More recently he received additional antibiotics for a IVF therapy. The patient did have additional blood work including a TB test that was negative. The patient denies any underlying respiratory issues or pneumonias in the past. He did have a repeat CT scan in mid March which I personally reviewed with them. I could not compare to his previous CT scan from [place] although he does have the CD new bring it in so we can download it. It appears that he has a masslike consolidation in the left upper lobe and significant hilar and mediastinal lymphadenopathy. I explained to the that this may be a smoldering infection or it may be that he has a concomitant process. Malignancy is in the differential. In addition to this the patient still has asymmetrical wheezing that area so therefore the area still involved even though the CT scan was from March. Will plan for urgent bronchoscopy at this time to better assess and evaluate the area. We did talk about different options including performing endobronchial ultrasound to sample the lymph nodes as well as regular bronchoscopy to further evaluate the airways and biopsy that left upper lobe area. 05/07/2022 the patient is here for a pulmonary follow-up visit. He is status post bronchoscopy. He had significant inflammation of the left upper lobe airways with narrowing of the airways. The patient also has significant lymphadenopathy in the mediastinum and also in the hilum. Some of the hilar lymph nodes on the left appear to be somewhat necrotic. Ultimately had both granulomas within the lymph nodes and also within the endobronchial mucosa suggestive of sarcoidosis. The granulomas were non necrotizing. The patient had already a negative T spot and also his AFB and fungal cultures are also negative hep to now. The however, they have not been finalized. The patient points more towards sarcoidosis however. The flow cytometry was negative for lymphoma. The patient also noted to have a small pericardial effusion noted on the endobronchial ultrasound bronchoscopy although this has has not been confirmed. Therefore I will also request an echocardiogram. The patient has been on a small dose of prednisone and appears to be feeling better. Therefore at this point since he is already feeling better with small dose will continue the current dose of 10 mg daily. She will undergo blood work PFTs echocardiogram and EKG and then will follow-up. 07/03/2022 the patient is here for a pulmonary follow-up visit. Overall the patient has been doing well. He is tolerating the 10 mg of prednisone. His respiratory symptoms have subsided denies any chest pain or cough or shortness of breath. He does have discomfort on the right side of his neck. Likely suspicious for tenderness over the right submandibular salivary gland. His other the submandibular gland and parotid glands appear to be okay. Explained to him that sometimes sarcoid can affect the salivary glands. Will have to monitor closely. The meantime he can try some sour candy. The patient will stay on 10 mg of prednisone for now. Plan to have him come back in [address] scan of the chest. In the meantime he needs to go get his eyes checked to make sure that there isn't any evidence of uveitis. The patient did have an echocardiogram. It was normal except for slight dilation of the ascending aorta. He understands he has to be careful with blood pressure keeping good control. 10/09/2022 the patient is here for a pulmonary follow-up visit. Overall he is feeling well. Continues on 10 mg of prednisone. Will work now on decreasing the prednisone. The patient did have a recent CT scan of the chest that was personally by me. No evidence of any active disease. Significant resolution of the lymphadenopathy and also the lung densities. Still has some pulmonary nodules and some streaks surgical scarring but minimal. Will need a follow-up CT in 12 months if he continues to be stable. The meantime will taper down the prednisone and start him on inhaled cortical steroids. The patient is aware that if he starts developing worsening respiratory symptoms he is to call the office. Otherwise will follow-up in the springtime with PFTs. 06/12/2023 the patient is here for a pulmonary follow-up visit. Overall the patient has been doing well. Continues on a very small dose of prednisone 5 mg every other day. He did have pulmonary function studies which I personally reviewed the appeared to be completely normal. Significantly improvement from his last PFTs from last year. His last CT scan was back from September 2022 demonstrating interval resolution or improvement of the masslike density. Patient also has other pulmonary nodules. Will go ahead and stop the prednisone at this time will taper it off in the next week or 2. And ultimately the patient will have a repeat CT scan sometime in September of October of 2023. Will see how he responds to being off the prednisone. He will continue the inhaled steroid for now. 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 If he has any issues coming off the prednisone will call the office for an earlier assessment. [facility] Medical History (Updated 07/03/22 @ 19:49 by Nikhil Marin MD) Sarcoidosis Anxiety HTN (hypertension) Wheezing Lymphadenopathy Lung mass Pneumonia Surgical History Hx of tonsillectomy Social History Patient Tobacco Use Status: Former Tobacco user Quit Date: 8 yrs ago Review of Systems Const Denies fever(s) Eyes Denies change in vision ENT Denies neck pain Card Denies chest pain and Denies dyspnea Resp Denies chest congestion, Denies cough, Denies dyspnea and Denies wheezing GI Reports no additional complaints Musc Reports no additional complaints and Denies neck pain Skin/Breast Denies rash Neuro Reports no additional complaints Jules/Lymph Denies easy bleeding, Denies easy bruising and Denies lymphadenopathy Aller/Immun Denies wheezing Physical Exam Vital Signs: Last Vital Signs Pulse 54 06/12/23 09:04 Pulse Ox 98 06/12/23 09:04 Oxygen Delivery Method Room Air 06/12/23 09:04 BMI result Body Mass Index 30.0 Const General: healthy appearing and comfortable HEENT Head: Yes normocephalic Eyes General: appearance normal, both eyes and all related structures Neck Neck: Yes supple Chest Chest palpation & inspection: normal inspection of the chest Resp Effort & Inspection: normal respiratory effort Auscultation: clear to auscultation bilaterally and no wheezes Cardio Rate: regular rate Rhythm: regular rhythm Heart sounds: S1 normal heart sound present and S2 normal heart sound present GI Palpation (GI): Soft to palpation Skin General skin exam: no rashes or lesions noted Extrem General: Yes normal to inspection Assessment & Plan Assessment & Plan (1) Sarcoidosis: Code(s): D86.9 - Sarcoidosis, unspecified Category: Medical (2) Lymphadenopathy: Code(s): R59.1 - Generalized enlarged lymph nodes Category: Medical Plan wean off Prednisone continue QVAR CT chest 10/2023 F/U 10/2023 Orders: Orders CT chest wo IV con 10/14/23 D86.9 - Sarcoidosis, unspecified, R59.1 - Generalized enlarged lymph nodes, R91.8 - Other nonspecific abnormal finding of lung field Coding Level of Care Code Est Pt Level 4 (66572) Diagnoses Sarcoidosis D86.9 Lymphadenopathy R59.1 Time Spent (min) 17
[2023-06-12 09:04] VITALS: PULSE 54; O2SAT 98
== END 2023-06-12 09:21 | disposition home or self-care (01) ==
PROVIDERS: PCP Internal Medicine; Visit Provider Hospitalist
DX: D86.9 Sarcoidosis, unspecified (principal); R59.1 Generalized enlarged lymph nodes
CPT/HCPCS: 99214

== ENCOUNTER → 2023-06-12 08:57 | Outpatient (BNVA) | payer OTHER, SELFPAY | PROVIDERS: PCP Internal Medicine; Visit Provider Hospitalist | DX: D86.9 Sarcoidosis, unspecified (principal) ==

== ENCOUNTER 2023-11-28 13:20 | Outpatient (AMB) | payer OTHER, SELFPAY ==
[2023-11-28 13:26] VITALS: BP 122/70; PULSE 61; O2SAT 96; BMI 29.3
--- NOTE | 2023-11-28 13:26 | A.OFFVIS_ITS ---
Vital Signs 11/28/23 13:26 Height 5 ft 9 in Weight 198 lb 6.656 oz BMI 29.3 BP 122/70 Blood Pressure Location Lt brachial Position Sitting Pulse 61 Pulse Source Pulse Oximeter Pulse Oximetry (%) 96 Oxygen Delivery Method Room Air Intake Visit Reasons: Pulmonary nodule Director Of Photography Required: No Allergies No Known Allergies Allergy (Verified 11/28/23 13:29) HPI Comments Details: The patient is a 48-year-old gentleman previously healthy who apparently was in his usual state health until back in January when he was in [place] started developing left-sided chest discomfort along with shortness of breath and cough. He was taken to a hospital in the [place] area. He did have a CT scan of the chest at that time the diagnosis in with pneumonia. The patient was given antibiotics and subsequently came back to the area. Once he came back to the [place] he needed to be started to the primary care doctor. Therefore, the patient did have a visit with primary care doctor. He initially felt better after being treated for the findings on the CT scan with antibiotics however, once he completed the therapy symptoms started to come back. He went to see his primary care doctor the patient completed the course of antibiotics with again partial improvement of the symptoms. At least his chest discomfort is no longer present although he still has coughing feeling aware sensation will need sleeps on with his left side down. More recently he received additional antibiotics for a IVF therapy. The patient did have additional blood work including a TB test that was negative. The patient denies any underlying respiratory issues or pneumonias in the past. He did have a repeat CT scan in mid March which I personally reviewed with them. I could not compare to his previous CT scan from [place] although he does have the CD new bring it in so we can download it. It appears that he has a masslike consolidation in the left upper lobe and significant hilar and mediastinal lymphadenopathy. I explained to the that this may be a smoldering infection or it may be that he has a concomitant process. Malignancy is in the differential. In addition to this the patient still has asymmetrical wheezing that area so therefore the area still involved even though the CT scan was from March. Will plan for urgent bronchoscopy at this time to better assess and evaluate the area. We did talk about different options including performing endobronchial ultrasound to sample the lymph nodes as well as regular bronchoscopy to further evaluate the airways and biopsy that left upper lobe area. 05/07/2022 the patient is here for a pulmonary follow-up visit. He is status post bronchoscopy. He had significant inflammation of the left upper lobe airways with narrowing of the airways. The patient also has significant lymphadenopathy in the mediastinum and also in the hilum. Some of the hilar lymph nodes on the left appear to be somewhat necrotic. Ultimately had both granulomas within the lymph nodes and also within the endobronchial mucosa suggestive of sarcoidosis. The granulomas were non necrotizing. The patient had already a negative T spot and also his AFB and fungal cultures are also negative hep to now. The however, they have not been finalized. The patient points more towards sarcoidosis however. The flow cytometry was negative for lymphoma. The patient also noted to have a small pericardial effusion noted on the endobronchial ultrasound bronchoscopy although this has has not been confirmed. Therefore I will also request an echocardiogram. The patient has been on a small dose of prednisone and appears to be feeling better. Therefore at this point since he is already feeling better with small dose will continue the current dose of 10 mg daily. She will undergo blood work PFTs echocardiogram and EKG and then will follow-up. 07/03/2022 the patient is here for a pulmonary follow-up visit. Overall the patient has been doing well. He is tolerating the 10 mg of prednisone. His respiratory symptoms have subsided denies any chest pain or cough or shortness of breath. He does have discomfort on the right side of his neck. Likely suspicious for tenderness over the right submandibular salivary gland. His other the submandibular gland and parotid glands appear to be okay. Explained to him that sometimes sarcoid can affect the salivary glands. Will have to monitor closely. The meantime he can try some sour candy. The patient will stay on 10 mg of prednisone for now. Plan to have him come back in [address] scan of the chest. In the meantime he needs to go get his eyes checked to make sure that there isn't any evidence of uveitis. The patient did have an echocardiogram. It was normal except for slight dilation of the ascending aorta. He understands he has to be careful with blood pressure keeping good control. 10/09/2022 the patient is here for a pulmonary follow-up visit. Overall he is feeling well. Continues on 10 mg of prednisone. Will work now on decreasing the prednisone. The patient did have a recent CT scan of the chest that was personally by me. No evidence of any active disease. Significant resolution of the lymphadenopathy and also the lung densities. Still has some pulmonary nodules and some streaks surgical scarring but minimal. Will need a follow-up CT in 12 months if he continues to be stable. The meantime will taper down the prednisone and start him on inhaled cortical steroids. The patient is aware that if he starts developing worsening respiratory symptoms he is to call the office. Otherwise will follow-up in the springtime with PFTs. 06/12/2023 the patient is here for a pulmonary follow-up visit. Overall the patient has been doing well. Continues on a very small dose of prednisone 5 mg every other day. He did have pulmonary function studies which I personally reviewed the appeared to be completely normal. Significantly improvement from his last PFTs from last year. His last CT scan was back from September 2022 demonstrating interval resolution or improvement of the masslike density. Patient also has other pulmonary nodules. Will go ahead and stop the prednisone at this time will taper it off in the next week or 2. And ultimately the patient will have a repeat CT scan sometime in September of October of 2023. Will see how he responds to being off the prednisone. He will continue the inhaled steroid for now. 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 If he has any issues coming off the prednisone will call the office for an earlier assessment. 11/28/2023 the patient is here for a pulmonary follow-up visit. Overall he is doing well. He is off all medications. Denies any respiratory complaints. He was supposed to have a CT scan of chest but he has not been able to do so. Does not at home and hard for him to get anything done this time. I did review his last CT scan of the chest that he had back in 09/30/2022 demonstrating some just minimal residual interstitial changes and then he has small subcentimeter pulmonary nodules. I did request that he get another CT scan done we can postpone it to 6 months from now in order for him to be in a better situation altogether. He will stay off the medication till then and we will follow-up in [address] scan. If he develops any worsening symptoms prior to that he will call for an earlier assessment. [facility] Medical History (Updated 11/28/23 @ 16:00 by Nikhil Marin MD) Pulmonary nodules Sarcoidosis Anxiety HTN (hypertension) Wheezing Lymphadenopathy Lung mass Pneumonia Surgical History Hx of tonsillectomy Social History Patient Tobacco Use Status: Former Tobacco user Review of Systems Const Denies fever(s) Eyes Denies change in vision ENT Denies neck pain Card Denies chest pain and Denies dyspnea Resp Denies chest congestion, Denies cough, Denies dyspnea and Denies wheezing GI Reports no additional complaints Musc Reports no additional complaints and Denies neck pain Skin/Breast Denies rash Neuro Reports no additional complaints Jules/Lymph Denies easy bleeding, Denies easy bruising and Denies lymphadenopathy Aller/Immun Denies wheezing Physical Exam Vital Signs: Last Vital Signs Pulse 61 11/28/23 13:26 BP 122/70 11/28/23 13:26 Pulse Ox 96 11/28/23 13:26 Oxygen Delivery Method Room Air 11/28/23 13:26 BMI result Body Mass Index 29.3 Const General: healthy appearing and comfortable HEENT Head: Yes normocephalic Eyes General: appearance normal, both eyes and all related structures Neck Neck: Yes supple Chest Chest palpation & inspection: normal inspection of the chest Resp Effort & Inspection: normal respiratory effort Auscultation: clear to auscultation bilaterally and no wheezes Cardio Rate: regular rate Rhythm: regular rhythm Heart sounds: S1 normal heart sound present and S2 normal heart sound present GI Palpation (GI): Soft to palpation Skin General skin exam: no rashes or lesions noted Extrem General: Yes normal to inspection Assessment & Plan Assessment & Plan (1) Sarcoidosis: Code(s): D86.9 - Sarcoidosis, unspecified Category: Medical (2) Lymphadenopathy: Code(s): R59.1 - Generalized enlarged lymph nodes Category: Medical (3) Pulmonary nodules: Code(s): R91.8 - Other nonspecific abnormal finding of lung field Category: Medical Plan wean off Prednisone continue QVAR CT chest 10/2023 F/U 10/2023 Orders: Orders CT chest wo IV con 6 Months R91.8 - Other nonspecific abnormal finding of lung field Coding Level of Care Code Est Pt Level 4 (05841) Diagnoses Sarcoidosis D86.9 Lymphadenopathy R59.1 Pulmonary nodules R91.8 Time Spent (min) 16
== END 2023-11-28 13:41 | disposition home or self-care (01) ==
PROVIDERS: PCP Internal Medicine; Visit Provider Hospitalist
DX: D86.9 Sarcoidosis, unspecified (principal); R59.1 Generalized enlarged lymph nodes; R91.8 Other nonspecific abnormal finding of lung field
CPT/HCPCS: 99214

== ENCOUNTER → 2023-11-28 13:20 | Outpatient (BNVA) | payer OTHER, SELFPAY | PROVIDERS: PCP Internal Medicine; Visit Provider Hospitalist | DX: D86.9 Sarcoidosis, unspecified (principal) ==

== ENCOUNTER 2024-05-29 16:47 | Outpatient (REF) | payer OTHER, SELFPAY | END 2024-05-29 16:48 | disposition home or self-care (01) | LOC: HO.CT 16:47 | PROVIDERS: Visit Provider Hospitalist | DX: R91.8 Other nonspecific abnormal finding of lung field (principal) | CPT/HCPCS: 71250 ==

== ENCOUNTER → 2024-05-29 17:05 | Outpatient (BNV) | payer OTHER, SELFPAY | PROVIDERS: Visit Provider Radiology Diagnostic Radiology | DX: R91.8 Other nonspecific abnormal finding of lung field (principal) | CPT/HCPCS: 71250 ==

== ENCOUNTER 2024-07-20 09:41 | Outpatient (AMB) | payer OTHER, SELFPAY ==
[2024-07-20 09:44] VITALS: BP 120/74; PULSE 64; O2SAT 96; BMI 32.2
--- NOTE | 2024-07-20 09:44 | A.OFFVIS_ITS ---
Vital Signs 07/20/24 09:44 Height 5 ft 9 in Weight 218 lb 4.122 oz BMI 32.2 BP 120/74 Blood Pressure Location Lt brachial Position Sitting Pulse 64 Pulse Source Pulse Oximeter Pulse Oximetry (%) 96 Oxygen Delivery Method Room Air Intake Visit Reasons: pulmonary nodule Accompanied by: Self / Same As Patient Allergies No Known Allergies Allergy (Verified 07/20/24 09:46) HPI Comments Details: The patient is a 49-year-old gentleman previously healthy who apparently was in his usual state health until back in January when he was in [place] started developing left-sided chest discomfort along with shortness of breath and cough. He was taken to a hospital in the [place] area. He did have a CT scan of the chest at that time the diagnosis in with pneumonia. The patient was given antibiotics and subsequently came back to the area. Once he came back to the [place] he needed to be started to the primary care doctor. Therefore, the patient did have a visit with primary care doctor. He initially felt better after being treated for the findings on the CT scan with antibiotics however, once he comp leted the therapy symptoms started to come back. He went to see his primary care doctor the patient completed the course of antibiotics with again partial improvement of the symptoms. At least his chest discomfort is no longer present although he still has coughing feeling aware sensation will need sleeps on with his left side down. More recently he received additional antibiotics for a IVF therapy. The patient did have additional blood work including a TB test that was negative. The patient denies any underlying respiratory issues or pneumonias in the past. He did have a repeat CT scan in mid March which I personally reviewed with them. I could not compare to his previous CT scan from [place] although he does have the CD new bring it in so we can download it. It appears that he has a masslike consolidation in the left upper lobe and significant hilar and mediastinal lymphadenopathy. I explained to the that this may be a smoldering infection or it may be that he has a concomitant process. Malignancy is in the differential. In addition to this the patient still has asymmetrical wheezing that area so therefore the area still involved even though the CT scan was from March. Will plan for urgent bronchoscopy at this time to better assess and evaluate the area. We did talk about different options including performing endobronchial ultrasound to sample the lymph nodes as well as regular bronchoscopy to further evaluate the airways and biopsy that left upper lobe area. 05/07/2022 the patient is here for a pulmonary follow-up visit. He is status post bronchoscopy. He had significant inflammation of the left upper lobe airways with narrowing of the airways. The patient also has significant lymphadenopathy in the mediastinum and also in the hilum. Some of the hilar lymph nodes on the left appear to be somewhat necrotic. Ultimately had both granulomas within the lymph nodes and also within the endobronchial mucosa suggestive of sarcoidosis. The granulomas were non necrotizing. The patient had already a negative T spot and also his AFB and fungal cultures are also negative hep to now. The however, they have not been finalized. The patient points more towards sarcoidosis however. The flow cytometry was negative for lymphoma. The patient also noted to have a small pericardial effusion noted on the endobronchial ultrasound bronchoscopy although this has has not been confirmed. Therefore I will also request an echocardiogram. The patient has been on a small dose of prednisone and appears to be feeling better. Therefore at this point since he is already feeling better with small dose will continue the current dose of 10 mg daily. She will undergo blood work PFTs echocardiogram and EKG and then will follow-up. 07/03/2022 the patient is here for a pulmonary follow-up visit. Overall the patient has been doing well. He is tolerating the 10 mg of prednisone. His respiratory symptoms have subsided denies any chest pain or cough or shortness of breath. He does have discomfort on the right side of his neck. Likely suspicious for tenderness over the right submandibular salivary gland. His other the submandibular gland and parotid glands appear to be okay. Explained to him that sometimes sarcoid can affect the salivary glands. Will have to monitor closely. The meantime he can try some sour candy. The patient will stay on 10 mg of prednisone for now. Plan to have him come back in [address] scan of the chest. In the meantime he needs to go get his eyes checked to make sure that there isn't any evidence of uveitis. The patient did have an echocardiogram. It was normal except for slight dilation of the ascending aorta. He understands he has to be careful with blood pressure keeping good control. 10/09/2022 the patient is here for a pulmonary follow-up visit. Overall he is feeling well. Continues on 10 mg of prednisone. Will work now on decreasing the prednisone. The patient did have a recent CT scan of the chest that was personally by me. No evidence of any active disease. Significant resolution of the lymphadenopathy and also the lung densities. Still has some pulmonary nodules and some streaks surgical scarring but minimal. Will need a follow-up CT in 12 months if he continues to be stable. The meantime will taper down the prednisone and start him on inhaled cortical steroids. The patient is aware that if he starts developing worsening respiratory symptoms he is to call the office. Otherwise will follow-up in the springtime with PFTs. 06/12/2023 the patient is here for a pulmonary follow-up visit. Overall the patient has been doing well. Continues on a very small dose of prednisone 5 mg every other day. He did have pulmonary function studies which I personally rev iewed the appeared to be completely normal. Significantly improvement from his last PFTs from last year. His last CT scan was back from September 2022 demonstrating interval resolution or improvement of the masslike density. Patient also has other pulmonary nodules. Will go ahead and stop the prednisone at this time will taper it off in the next week or 2. And ultimately the patient will have a repeat CT scan sometime in September of October of 2023. Will see how he responds to being off the prednisone. He will continue the inhaled steroid for now. 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 If he has any issues coming off the prednisone will call the office for an earlier assessment. 11/28/2023 the patient is here for a pulmonary follow-up visit. Overall he is doing well. He is off all medications. Denies any respiratory complaints. He was supposed to have a CT scan of chest but he has not been able to do so. Does not at home and hard for him to get anything done this time. I did review his last CT scan of the chest that he had back in 09/30/2022 demonstrating some just minimal residual interstitial changes and then he has small subcentimeter pulmonary nodules. I did request that he get another CT scan done we can postpone it to 6 months from now in order for him to be in a better situation altogether. He will stay off the medication till then and we will follow-up in [address] scan. If he develops any worsening symptoms prior to that he will call for an earlier assessment. [age] patient is here for a pulmonary follow-up visit. Overall he is feeling very well. He is not using anymore prednisone or inhalers. He is staying busy staying active with exercise. He is no longer working with dust and also trying to avoid it because he felt that that was also bothering his lungs. He did have a CT scan of the chest back in May 2024 which we personally reviewed. He does not have any remnants of any scarring or any nodular densities. Overall is normal CT scan of the chest. No additiona CT scans require. Will plan to do an x-ray in a year's time. If the patient has any issues prior to that he will call for an earlier assessment. Right now his sarcoid appears to be completely dormant. No evidence of any active disease which is reassuring. If he develops any worsening symptoms he will call otherwise will follow-up in a year's time. [facility] Medical History (Updated 07/20/24 @ 09:59 by Nikhil Marin MD) Pulmonary nodules Sarcoidosis Anxiety HTN (hypertension) Wheezing Lymphadenopathy Lung mass Pneumonia Surgical History Hx of tonsillectomy Social History Patient Tobacco Use Status: Former Tobacco user Review of Systems Const Denies chills, Denies fatigue, Denies fever(s), Denies weight gain and Denies weight loss Eyes Denies change in vision ENT Denies dizziness Card Denies chest pain, Denies leg edema, Denies lightheadedness, Denies palpitations, Denies dyspnea on exertion, Denies orthopnea and Denies other Resp Denies cough, Denies dyspnea on exertion and Denies wheezing GI Denies hematochezia and Denies change in stool character Musc Denies abnormal gait, Denies muscle weakness, Denies numbness, Denies radiating pain into limb and Denies tingling Skin/Breast Denies rash Neuro Denies abnormal gait, Denies dizziness, Denies numbness and Denies tingling Endo Denies fatigue and Denies palpitations Jules/Lymph Denies easy bleeding, Denies easy bruising and Denies lymphadenopathy Aller/Immun Denies wheezing Physical Exam Vital Signs: Last Vital Signs Pulse 64 07/20/24 09:44 BP 120/74 07/20/24 09:44 Pulse Ox 96 07/20/24 09:44 Oxygen Delivery Method Room Air 07/20/24 09:44 BMI result Body Mass Index 32.2 Const General: healthy appearing and comfortable HEENT Head: Yes normocephalic Eyes General: appearance normal, both eyes and all related structures Neck Neck: Yes supple Chest Chest palpation & inspection: normal inspection of the chest Resp Effort & Inspection: normal respiratory effort Auscultation: clear to auscultation bilaterally and no wheezes Cardio Rate: regular rate Rhythm: regular rhythm Heart sounds: S1 normal heart sound present and S2 normal heart sound present GI Palpation (GI): Soft to palpation Skin General skin exam: no rashes or lesions noted Extrem General: Yes normal to inspection Assessment & Plan Assessment & Plan (1) Sarcoidosis: Comment: Not active Code(s): D86.9 - Sarcoidosis, unspecified Category: Medical (2) Lymphadenopathy: Comment: resolved Code(s): R59.1 - Generalized enlarged lymph nodes Category: Medical (3) Pulmonary nodules: Comment: resolved Code(s): R91.8 - Other nonspecific abnormal finding of lung field Category: Medical Plan off Prednisone Stopped inhalers CXR in 1 yr F/U 1 yr Orders: Orders XR chest 2V Today R91.8 - Other nonspecific abnormal finding of lung field Coding Level of Care Code Est Pt Level 4 (05035) Diagnoses Sarcoidosis D86.9 Lymphadenopathy R59.1 Pulmonary nodules R91.8 Time Spent (min) 16
--- OUTSIDE RECORDS SUMMARY | 2024-07-20 10:22 | XMS_ITS | Patient Health Record ---
Author Organization [facility] [place] Address [address] [place] [address] Care Team Providers Care Netsuite Developer Name Role Phone Sarkis Rosas MD Primary Care Provider Unavaila Duy Blanchard Unavailable [phone] Reason For Referral No Information Plan Of Treatment No Information Insurance Providers Payer Name Payer Address Payer Phone Subscriber Number Group Number Insured Name Patient Relationship to Insured Coverage Start Date Coverage End Date [facility] [address] [address] [place] [address] [id number] CAMILA SUAREZ Self - patient is the insured
== END 2024-07-20 09:58 | disposition home or self-care (01) ==
LOC: HO.HPS 09:42
PROVIDERS: PCP Internal Medicine; Visit Provider Hospitalist
DX: D86.9 Sarcoidosis, unspecified (principal); R59.1 Generalized enlarged lymph nodes; R91.8 Other nonspecific abnormal finding of lung field
CPT/HCPCS: 99214

== ENCOUNTER → 2024-07-20 09:41 | Outpatient (BNVA) | payer OTHER, SELFPAY | PROVIDERS: PCP Internal Medicine; Visit Provider Hospitalist ==